=== PATIENT | female | born 1985 | race Caucasian/White ===

== ENCOUNTER 2020-09-23 11:38 | Emergency (ER) | payer OTHER ==
[~2020-09-23] VITALS: Ht 165.1 cm; Wt 65.3 kg
[2020-09-23 11:49] VITALS: Ht 165.1 cm; Wt 65.3 kg
[2020-09-23 14:41] VITALS: BP 121/72
== END 2020-09-23 14:30 | disposition home or self-care (01) ==
LOC: ED 11:38
DX: S33.5XXA Sprain of ligaments of lumbar spine, initial encounter (principal); R42 Dizziness and giddiness; W10.8XXA Fall (on) (from) other stairs and steps, initial encounter; Y93.89 Activity, other specified; Y92.89 Other specified places as the place of occurrence of the external cause; Y99.8 Other external cause status
CPT/HCPCS: J1885; J3010; Q0162

== ENCOUNTER 2020-09-25 14:59 | Emergency (ER) | payer OTHER ==
[~2020-09-25] VITALS: Ht 165.1 cm; Wt 64.9 kg
[2020-09-25 15:14] VITALS: Ht 165.1 cm; Wt 64.9 kg
[2020-09-25 17:05] VITALS: BP 123/83
== END 2020-09-25 17:05 | disposition home or self-care (01) ==
LOC: ED 14:59
DX: M54.5 Low back pain (principal); G89.29 Other chronic pain